=== PATIENT | female | born 1950 | race Caucasian/White ===

== ENCOUNTER → 2016-06-03 | Outpatient (CLI) | payer OTHER ==
--- NOTE | 2016-06-03 13:20 | DX ---
PA and Lateral Chest - June 03, 2016 History: Cough. Comparison: None available. Findings: There is mild peribronchial thickening without focal consolidation. There is no pneumothora x or pleural effusion. The heart and pulmonary vasculature are normal. Dextroscoliosis of the midthor acic spine is present. Impression: Mild peribronchial thickening suggesting airways disease/bronchitis. Findings discussed with Mine Bautista RN, TRAVEL TICKETING REVIEWER today at 1315 hours.
== END ==
LOC: FIMAGING 12:36
PROVIDERS: ATTEND Registered Nurse
DX: R06.02 Shortness of breath (principal); R09.89 Other specified symptoms and signs involving the circulatory and respiratory systems